=== PATIENT | male | born 1950 | race Caucasian/White ===

== ENCOUNTER → 2018-07-22 | Outpatient (CLI) | payer OTHER ==
[~2018-07-22] MED LIST: CARVEDILOL6.25 MG PO; COUMADIN7.5 M1 PO; COZAAR100 MG PO; LIPITOR80 MG PO; LOPRESSOR25 MG PO; LOSARTAN POTAS100 M1 PO
== END | disposition home or self-care (01) ==
LOC: LAB 16:57 → US 17:00
DX: N18.3 Chronic kidney disease, stage 3 (moderate) (principal)

== ENCOUNTER 2020-06-19 13:36 | Emergency (ER) | payer OTHER ==
[~2020-06-19] VITALS: Wt 103.4 kg
[2020-06-19 14:15] LABS: BILIRUBIN Negative (Negative); BLOOD 3+ (Negative); CLARITY Cloudy (Clear); COLOR Yellow (Yellow); GLUCOSE Negative (Negative); KETONE 1+ (Negative); LEUKO ESTERASE Trace (Negative); NITRITE Negative (Negative); PH 5.5 (4.5-8.0); SPECIFIC GRAVITY 1.025 (1.001-1.030)
[2020-06-19 14:21] LABS: BACTERIA 2+; MUCOUS TRACE; RBC TNTC rbc/hpf (0-2)
[2020-06-19 14:26] LABS: HEMATOCRIT 46.1 % (42.0-52.0); MEAN CELL VOLUME 89.7 fl (80.0-94.0); MEAN CORPUSCULAR HGB 29.6 pg (27.0-31.0); MEAN PLATELET VOLUME 10.2 fl (9.6-12.3); PLATELET COUNT AUTOMATED 269 10*3/uL (130-400); RED BLOOD COUNT 5.14 10*6/uL (4.50-5.90); RED CELL DISTRI WIDTH 13.2 % (0-14.5); WHITE BLOOD COUNT 12.4 10*3/uL (4.8-10.8)
[2020-06-19 14:42] LABS: ALBUMIN 3.7 gm/dl (3.1-4.5); CREATININE 1.75 mg/dL (0.70-1.30); POTASSIUM 4.1 mmol/L (3.5-5.1); TOTAL PROTEIN 7.6 gm/dL (6.4-8.2)
[2020-06-19 15:10] LABS: TOTAL CELLS COUNTED 100 #CELLS
[2020-06-19 15:11] LABS: PLATELET SUFFICIENCY NORMAL (NORMAL)
== END 2020-06-19 21:02 ==
LOC: ED 13:36
PROVIDERS: Nurse Practitioner
DX: A41.9 Sepsis, unspecified organism (principal); N20.0 Calculus of kidney; N28.9 Disorder of kidney and ureter, unspecified; N39.0 Urinary tract infection, site not specified; Z88.0 Allergy status to penicillin; Z79.899 Other long term (current) drug therapy; Z79.01 Long term (current) use of anticoagulants; Z98.890 Other specified postprocedural states

== ENCOUNTER 2021-06-25 12:56 | Emergency (ER) | payer OTHER ==
[~2021-06-25] VITALS: Ht 180.3 cm; Wt 93.0 kg
[2021-06-25 13:30] LABS: BASO % 0.4 % (0.0-1.0); EOS # 0.1 10*3/uL (0.0-0.4); EOS % 0.8 % (1.0-4.0); HEMATOCRIT 47.5 % (42.0-52.0); LYMPH # 1.1 10*3/uL (1.3-4.4); LYMPH % 14.8 % (27.0-41.0); MEAN CORPUSCULAR HGB 30.1 pg (27.0-31.0); MEAN CORPUSCULAR HGB CONC 33.9 g/dl (33.0-37.0); MEAN PLATELET VOLUME 10.6 fl (9.6-12.3); MONO # 0.5 10*3/uL (0.1-1.0); MONO % 6.3 % (3.0-9.0); NEUT # 5.9 10*3/uL (2.3-7.9); NEUT % 77.3 % (47.0-73.0); PLATELET COUNT AUTOMATED 242 10*3/uL (130-400); RED BLOOD COUNT 5.34 10*6/uL (4.50-5.90); RED CELL DISTRI WIDTH 13.1 % (0-14.5); WHITE BLOOD COUNT 7.7 10*3/uL (4.8-10.8)
[2021-06-25 13:40] LABS: INTERNATIONAL NORM RATIO 3.7 (2.0-3.5)
[2021-06-25 13:47] LABS: CREATININE 2.27 mg/dL (0.70-1.30); POTASSIUM 3.4 mmol/L (3.5-5.1); TOTAL PROTEIN 7.1 gm/dL (6.4-8.2)
[2021-06-25 16:18] LABS: CREATININE 1.73 mg/dL (0.70-1.30); POTASSIUM 3.6 mmol/L (3.5-5.1); TOTAL PROTEIN 6.1 gm/dL (6.4-8.2)
== END 2021-06-25 17:10 | disposition home or self-care (01) ==
LOC: ED 12:56
PROVIDERS: Physician Assistant
DX: E86.0 Dehydration (principal); Z88.0 Allergy status to penicillin; Z79.899 Other long term (current) drug therapy